=== PATIENT | female | born 2000 | race Caucasian/White ===

== ENCOUNTER 2023-08-02 19:01 | Outpatient (NON) | payer BC, SELFPAY | END 2023-08-02 19:02 | disposition home or self-care (01) | LOC: ANHGOSHLAB 19:03 | PROVIDERS: PCP Family Medicine; Visit Provider Nurse Practitioner Family | DX: N39.0 Urinary tract infection, site not specified (principal) | CPT/HCPCS: 87077; 87086; 87186 ==